=== PATIENT | male | born 2000 | race Two or more races ===

== ENCOUNTER 2022-06-15 16:14 | Emergency (ER) | payer OTHER ==
[2022-06-15 16:22] VITALS: BP 146/90; PULSE 108; RESP 18; TEMP 98.9; BMI 39.1
[2022-06-15] MEDS ORDERED: IBUPROFEN 600 MG TABLET (FP) PO ONE ×2 (16:40→17:00)
== END 2022-06-15 17:39 | disposition home or self-care (01) ==
LOC: FER 16:14
DX: M25.561 Pain in right knee (principal); V49.50XA Passenger injured in collision with unspecified motor vehicles in traffic accident, initial encounter
CPT/HCPCS: 73562-TC-RT-FY; 99283-25